=== PATIENT | female | born 1940 | race Caucasian/White ===

== ENCOUNTER → 2016-08-28 | Outpatient (CLI) | payer MEDICARE, MEDICAID ==
[~2016-08-28] MED LIST: ALBUTEROL2.5 MG/3 M IH; AMLODIPINE BESY10 MG PO; BENICAR40 MG PO; BUPROPION75 MG PO; BYSTOLIC5 MG PO; CRESTOR 10MG10 MG PO; FUROSEMIDE20 MG PO; FUROSEMIDE40 MG PO; GOOD SENSE ASP325 M1 PO; GOOD SENSE ASPI81 M1 PO; KLOR-CON M2020 MEQ PO; LEVAQUIN 5500 MG/TA1 PO; LORATADINE10 MG PO; LORAZEPAM0.5 MG PO; LORTAB 7.5/5001 TAB PO; METOPROLOL TART25 MG PO; MS CONTIN 330 MG/TAB PO; MS CONTIN 660 MG/TAB PO; MS CONTIN30 MG PO; MUPIROCIN; NAPROXEN500 MG PO; NORCO 325 MG-7.1 TA1 PO; NORVASC 10MG10 MG PO; PLAVIX 75MG TAB75 MG PO; POTASSIUM20 MEQ PO; PREDNISONE20 M1 PO; RT ADVAIR 128 DISKUS IH; SEPTRA DS 800 M1 TA1 PO; WELLBUTRIN 75MG75 MG PO
== END ==
LOC: LAB 15:35
DX: I10 Essential (primary) hypertension (principal)